=== PATIENT | male | born 1980 | race Caucasian/White ===

== ENCOUNTER → 2024-10-17 09:30 | Outpatient (BNVA) | payer OTHER, SELFPAY | PROVIDERS: Family Provider Internal Medicine; PCP Internal Medicine; Visit Provider Family Medicine | DX: F41.8 Other specified anxiety disorders (principal); R00.2 Palpitations; K62.5 Hemorrhage of anus and rectum; R55 Syncope and collapse; F40.01 Agoraphobia with panic disorder; E03.9 Hypothyroidism, unspecified | CPT/HCPCS: 80053; 80061; 82607; 83036; 84443; 85025 ==

== ENCOUNTER → 2024-12-24 10:18 | Outpatient (BNVA) | payer OTHER, SELFPAY | PROVIDERS: Family Provider Internal Medicine; PCP Internal Medicine; Visit Provider Internal Medicine Cardiovascular Disease | DX: R00.2 Palpitations (principal); I49.8 Other specified cardiac arrhythmias | CPT/HCPCS: 93005 ==

== ENCOUNTER → 2025-10-24 08:28 | Outpatient (BNVA) | payer BC, SELFPAY | PROVIDERS: PCP Family Medicine; Visit Provider Family Medicine | DX: Z00.00 Encounter for general adult medical examination without abnormal findings (principal); F40.01 Agoraphobia with panic disorder; F41.8 Other specified anxiety disorders | CPT/HCPCS: 80053; 80061; 85025 ==